=== PATIENT | female | born 1950 | race Caucasian/White ===

== ENCOUNTER 2020-03-13 17:03 | Emergency (ER) | payer MEDICARE ==
[~2020-03-13] VITALS: Ht 167.6 cm; Wt 102.1 kg
[2020-03-13 17:07] VITALS: BP_SYST 159
[2020-03-13 17:49] VITALS: BP_SYST 152
== END 2020-03-13 17:49 | disposition home or self-care (01) ==
LOC: SED 17:03
DX: I83.91 Asymptomatic varicose veins of right lower extremity (principal); I10 Essential (primary) hypertension; E11.9 Type 2 diabetes mellitus without complications; E07.9 Disorder of thyroid, unspecified; Z90.710 Acquired absence of both cervix and uterus
CPT/HCPCS: 99282